=== PATIENT | male | born 1945 | race Caucasian/White ===

== ENCOUNTER 2023-03-09 14:21 | Observation (INO) ==
--- NOTE | 2023-03-09 14:29 | ED Triage Note ---
Date of Service March 09, 2023 History of Present Illness This patient was briefly evaluated while in triage. An abbreviated physical exam was performed. This patient is a 77-year-old Male who presents to the ED for evaluation of L arm numbness that has been present for a month. He had similar symptoms like this in the past resulting in stents being placed. He admits he has been putting it off. Physical Exam CONSTITUTIONAL: in no acute pain or distress, resting comfortably RESPIRATORY: in no respiratory distress Initial orders for labs and / or imaging were placed and patient was placed in the waiting area until a bed is available. Please see further documentation for the full ED course.
--- NOTE | 2023-03-09 15:04 | XRay Report ---
XR chest 1V not portable CLINICAL HISTORY: L arm paresthesias, hx cardiac disease TECHNIQUE: Single frontal radiograph of the chest was obtained. Comparison: None available at the time of this dictation. FINDINGS: No lines and tubes are seen. The cardiomediastinal silhouette is normal. Reticular interstitial opaci ties are seen. No evidence of pleural effusion or pneumothorax. IMPRESSION: No acute chest disease. ACT 112: Negative or not required by law. Electronically signed by: Ishan Rangel M.D. 03/09/2023 3:01 PM
--- NOTE | 2023-03-09 15:47 | Emergency Department Note ---
Impression & Plan Arm pain, History of coronary artery disease, Ambulatory dysfunction ED Provider Note NAME: ELIZABETH COOL AGE: 77 SEX: M : 1945 ARRIVES VIA: Walk-In INFORMANT: Patient, ED PROVIDER(S): Ramón Schultz MD CHIEF COMPLAINT: Left arm decreased sensation, cardiac evaluation MEDICAL DECISION MAKING: Patient presents for decree sensation of the left arm which is been ongoing x 1 month and was concerned about the possibility of stroke; however, the patient states that this is similar to the 2 prior times he has required stents. Patient has a nonfocal neurologic exam and no headache. This may be an anginal equivalent. Do not believe requires a CT of the head at this time. The patient is not meningitic encephalopathic and does have sensation of the left upper extremity. Patient does not have any overt weakness. Patient not a TNK candidate given chronicity of symptoms. Blood work shows a normal white count H&H and platelet count. Kidney function is unremarkable but with prerenal azotemia. Troponin not elevated. Given that the patient has had symptoms similar to his prior MIs a do believe the patient would benefit from further observation and treatment. Patient is not low risk with regard to heart score. I did speak with the on-call hospitalist service Dr. Lewis and the patient was admitted to the medicine service Prior /Outside records reviewed: None Differential diagnosis: Cardiac ischemia, aortic dissection, pulmonary embolism, pneumothorax, pneumonia, pericarditis, myocarditis, esophageal rupture, GERD, cholecystitis, pancreatitis, musculoskeletal, as well as other pathologies. Diagnostics, as interpreted by me: ECG: Sinus bradycardia with prolonged AZ, rate of 54, left axis deviation, T wave version in V2, no ST elevations. Cardiac monitoring: An order was placed for continuous cardiac monitoring. The monitor shows a rate of 57 with sinus rhythm. Patient was placed on pulse oximetry Medical decision rules: Heart score Imaging studies: See below I informally reviewed the patient's chest x-ray which does not show obvious pneumothorax. HPI: Patient presents with left arm decree sensation/numbness which has been ongoing for the last month. Patient was concerned about stroke but states that this feels similar to when he had IN x 2. Patient denies any active chest pain or necessarily exertional symptoms. No nausea vomiting or diaphoresis. No leg swelling. 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 Patient states he is compliant with his medications. No recent falls or trauma. Patient denies any cough or fever. Patient states that even though he has been having it he did not think much of it during the day as when he is busy he does not notice it but in the evening time he does seem to notice that that today he "got scared" and presented here for further evaluation and treatment. Patient was concerned about the possibility of stroke but denies any weakness of an extremity. 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 No slurred speech or facial droop. No headache or neck pain. PAST MEDICAL HISTORY: See Below PAST SURGICAL HISTORY: See Below SOCIAL HISTORY: See Below HOME MEDICATIONS: See Below ALLERGIES: See Below VITALS: See Below PHYSICAL EXAMINATION: GENERAL: NAD, non-toxic. EYE EXAM: Normal conjunctiva. PERRL, no anisocoria and EOM's grossly intact w/o pain. OROPHARYNX: Moist mucus membranes, grossly normal dentition. NECK: Supple, no nuchal rigidity, no adenopathy, non-tender. No signs of meningismus. FROM of the neck with good chin to chest and neck extension. No stridor. LUNGS: Clear to auscultation. Normal chest wall mechanics. HEART: NSR, no MRG. ABDOMEN: Abdomen soft, non-tender, no masses, no rebound or guarding. BACK: No CVA TTP. SKIN: No rashes and no bruising. UPPER EXTREMITIES: Upper extremities are grossly normal. LOWER EXTREMITIES: Grossly normal, no edema. Negative Homans' sign bilaterally. NEURO EXAM: A&O x3, cranial nerves II-XII grossly intact, normal speech, moves all 4 extremities. Sensate to the bilateral upper and lower extremities. Good [id number] and no drift. Past Med/Surg History Medical History Anxiety CAD (coronary artery disease) GERD (gastroesophageal reflux disease) Guillain Sorenson syndrome HLD (hyperlipidemia) Surgical History Coronary angioplasty status Social History Smoking Status: Former smoker Feels Safe at Home: Yes Allergies Allergies Allergy/AdvReac Type Severity Reaction Status Date / Time No Known Allergies Allergy Verified 03/09/23 17:29 Home Meds Home Medications Medication Instructions Recorded Confirmed aspirin 81 mg tablet,delayed 81 mg PO QAM 03/09/23 03/09/23 release atorvastatin 80 mg tablet 80 mg PO QAM 03/09/23 03/09/23 citalopram 20 mg tablet 20 mg PO HS 03/09/23 03/09/23 multivitamin 1 tab PO QAM 03/09/23 03/09/23 omega 4-brq-vhv-fish oil 1,000 mg 1 cap PO QAM 03/09/23 03/09/23 (120 mg-180 mg) capsule (Fish Oil) omeprazole 20 mg capsule,delayed 20 mg PO QAM 03/09/23 03/09/23 release tamsulosin 0.4 mg capsule 0.4 mg PO QAM 03/09/23 03/09/23 trazodone 50 mg tablet 50 mg PO HS 03/09/23 03/09/23 Results & Data (ED) Vital Signs Vital Signs - 24 hr 03/09/23 14:24 03/09/23 16:11 03/09/23 16:11 Temperature 36.8 C Temperature Source Temporal Artery Scan Pulse Rate 62 55 L Pulse Rate [Apical] 55 L Pulse Rate [Finger] Pulse Rhythm Regular Respiratory Rate 15 23 20 Respiratory Effort / Characteristics Non-Labored Spontaneous Non-Labored Spontaneous Respiratory Depth Normal Respiratory Pattern Regular Blood Pressure 168/77 H Blood Pressure [Right Arm] 160/92 H Blood Pressure Mean 107 Blood Pressure Mean [Right Arm] 114 Blood Pressure Position [Right Arm] Semi-fowlers Pulse Oximetry 94 96 96 Oxygen Delivery Method Room Air Room Air Room Air Sepsis Recent Fever Within 48 Hours No Sepsis New/Unexplained Change in Mental Status No Sepsis Action Taken by Nursing No Action Required 03/09/23 16:22 03/09/23 18:46 03/09/23 20:29 Temperature Temperature Source Pulse Rate 53 L Pulse Rate [Apical] 60 Pulse Rate [Finger] Pulse Rhythm Respiratory Rate 19 Respiratory Effort / Characteristics Respiratory Depth Respiratory Pattern Blood Pressure Blood Pressure [Right Arm] 190/84 H Blood Pressure Mean Blood Pressure Mean [Right Arm] 119 Blood Pressure Position [Right Arm] Pulse Oximetry 96 94 Oxygen Delivery Method Room Air Room Air Sepsis Recent Fever Within 48 Hours Sepsis New/Unexplained Change in Mental Status Sepsis Action Taken by Nursing 03/09/23 20:29 03/09/23 22:05 Temperature Temperature Source Pulse Rate Pulse Rate [Apical] 56 L Pulse Rate [Finger] 59 L Pulse Rhythm Respiratory Rate 18 16 Respiratory Effort / Characteristics Respiratory Depth Respiratory Pattern Blood Pressure Blood Pressure [Right Arm] 161/78 H 142/78 H Blood Pressure Mean Blood Pressure Mean [Right Arm] 105 99 Blood Pressure Position [Right Arm] Semi-fowlers Semi-fowlers Pulse Oximetry 94 95 Oxygen Delivery Method Room Air Room Air Sepsis Recent Fever Within 48 Hours Sepsis New/Unexplained Change in Mental Status Sepsis Action Taken by Long-Term Medications Current Medication List: was personally reviewed by me Laboratory Data Attestation: I reviewed the patient's lab results. 03/09/23 14:42 03/09/23 14:42 Lab Results 03/09/23 03/09/23 Range/Units 14:42 14:42 WBC 5.14 (4.8-10.8) K/ul RBC 4.68 L (4.70-6.10) M/uL Hgb 14.7 (14.0-18.0) g/dl Hct 42.1 (42.0-52.0) % MCV 90.0 (80.0-100.0) fL MCH 31.4 (25.0-34.0) pg MCHC 34.9 (32.0-36.0) g/dL RDW Std Deviation 43.7 (36.4-46.3) fL RDW Coeff of Roman 13.2 (11.5-14.5) % Plt Count 170 (130-400) K/uL MPV 9.8 (9.4-12.4) fL Immature Gran % (Auto) 0.4 % Neut % (Auto) 53.2 % Lymph % (Auto) 34.4 % [place] % (Auto) 8.9 % Eos % (Auto) 2.3 % Baso % (Auto) 0.8 % Neut # (Auto) 2.73 (1.40-6.50) K/uL Lymph # (Auto) 1.77 (1.2-3.4) K/uL [place] # (Auto) 0.46 (0.11-0.59) K/uL Eos # (Auto) 0.12 (0-0.50) K/uL Baso # (Auto) 0.04 (0-0.2) K/uL Immature Gran # (Auto) 0.02 (0.01-0.20) K/uL Sodium 138 (136-145) mmol/L Potassium 4.2 (3.5-5.1) mmol/L Chloride 104 (98-107) mmol/L Carbon Dioxide 28 (21-32) mmol/L Anion Gap 6 (3-11) BUN 20 (6-23) mg/dl Creatinine 0.69 (0.6-1.4) mg/dl Est Cr Clr Drug Dosing 93.4 ml/min Est GFR ( Amer) 106.1 ml/min Est GFR (Non-Af Amer) 91.6 ml/min BUN/Creatinine Ratio 29.0 H (10-20) Glucose 92 (70-99(Fasting)) mg/dl Calcium 9.3 (8.6-10.3) mg/dl Total Bilirubin 0.6 (0.2-1.0) mg/dl AST 22 (13-39) U/L ALT 27 (7-52) U/L Alkaline Phosphatase 75 (34-104) U/L Troponin I High Sens 11.6 (0-20) pg/ml Total Protein 7.6 (6.0-8.3) gm/dl Albumin 4.3 (3.4-5.0) gm/dl Globulin 3.3 (2.5-4.0) gm/dl Albumin/Globulin Ratio 1.3 (0.9-2) Administered Medications Discontinued Medications Aspirin (Aspirin Chew 324 Mg) 324 mg PO NOW STA Stop: 03/09/23 17:39 Last Admin: 03/09/23 17:43 Dose: 324 mg Documented By: AB Ioversol (Ioversol 350 Mg 125ml Prefilled Syringe) 117 ml IV ONCE ONE Stop: 03/09/23 18:22 Last Admin: 03/09/23 18:21 Dose: 117 ml Documented By: [facility] Imaging Data Radiologist's Impression: Chest X-Ray 03/09/23 14:25 XR chest 1V not portable CLINICAL HISTORY: L arm paresthesias, hx cardiac disease TECHNIQUE: Single frontal radiograph of the chest was obtained. Comparison: None available at the time of this dictation. FINDINGS: No lines and tubes are seen. The cardiomediastinal silhouette is normal. Reticular interstitial opacities are seen. No evidence of pleural effusion or pneumothorax. IMPRESSION: No acute chest disease. ACT 112: Negative or not required by law. Electronically signed by: Ishan Rangel M.D. 03/09/2023 3:01 PM Brain MRI 03/09/23 17:51 Exam(s): MRI HEAD Without Contrast EXAM: MR Head Without Intravenous Contrast CLINICAL HISTORY: Reason for exam: LUE numbness. TECHNIQUE: Magnetic resonance images of the head/brain without intravenous contrast in multiple planes. COMPARISON: CT head on same day FINDINGS: Brain: Mild chronic small vessel ischemic changes. No hemorrhage. No restricted diffusion to suggest acute infarct. Ventricles: Mild prominence of the ventricles and sulci is likely secondary to cerebral volume loss. Bones/joints: Unremarkable. Sinuses: Mild mucosal thickening in the ethmoid air cells. No acute sinusitis. Mastoid air cells: Unremarkable as visualized. No mastoid effusion. Orbits: Unremarkable as visualized. IMPRESSION: No restricted diffusion to suggest acute infarct. Electronically signed by: Mart Velez M.D. 03/09/23 20:[address] 03/09/23 17:[address] DOSE: 1213.66 mGy.cm HISTORY: L arm numbness/tingling. TECHNIQUE: Multiaxial CT images of the head were performed without the use of intravenous contrast. Automated exposure control was utilized for this study. A dose lowering technique was utilized adhering to the principles of ALARA. Comparison: None. Findings: The paranasal sinuses and mastoid air cells are clear. The calvarium and skull base are intact. The ventricles and sulci are within normal limits. There is no mass, hematoma, midline shift, or acute infarct. Impression: No acute intracranial abnormality. ACT 112: Negative or not required by law. Electronically signed by: Ramírez Oliveira M.D. 03/09/2023 6:37 PM Head CTA 03/09/23 17:52 HEAD & NECK CTA HISTORY: L arm numbness/tingling. TECHNIQUE: Multiaxial CT images of the head were performed following the intravenous administration of contrast to evaluate the major cerebral vessels. Multiaxial CT images of the neck were also performed following the intravenous administration of contrast to evaluate the major cervical vessels. 3D/MIP images were also obtained. Sagittal and coronal reformats were reviewed. A dose lowering technique was utilized adhering to the principles of ALARA. COMPARISON: Head CT 03/09/2023. FINDINGS: There is no mass, hematoma, midline shift, or acute infarct. Visualized intracranial internal carotid arteries, distal vertebral arteries, and basilar artery are widely patent. There is no significant stenosis, occlusion, or aneurysm seen within the bilateral ACAs, MCAs, or unemployment benefits claims taker. The major dural venous sinuses are patent. There is a hypoplastic left vertebral artery in comparison to the right The aortic arch and proximal great vessels are widely patent. There is no significant stenosis, occlusion, or dissection identified within the bilateral common carotid, internal carotid, or vertebral arteries. Mild paraseptal emphysema is noted. No pneumothorax. Severe degenerative disc disease at C5-C6 and C6-C7 without high-grade central canal stenosis. Focal indentation at the superior endplate of C7 favors a Schmorl's node. Mild calcified plaque within the bilateral carotid bifurcations. 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 IMPRESSION: 1. No significant stenosis, occlusion, or aneurysm within the [place]. 2. No significant stenosis, occlusion, or dissection identified within the carotid or vertebral arteries. ACT 112: Negative or not required by law. Electronically signed by: Ramírez Oliveira M.D. 03/09/2023 6:44 PM Neck CTA 03/09/23 17:52 HEAD & NECK CTA HISTORY: L arm numbness/tingling. TECHNIQUE: Multiaxial CT images of the head were performed following the intravenous administration of contrast to evaluate the major cerebral vessels. Multiaxial CT images of the neck were also performed following the intravenous administration of contrast to evaluate the major cervical vessels. 3D/MIP images were also obtained. Sagittal and coronal reformats were reviewed. A dose lowering technique was utilized adhering to the principles of ALARA. COMPARISON: Head CT 03/09/2023. FINDINGS: There is no mass, hematoma, midline shift, or acute infarct. Visualized intracranial internal carotid arteries, distal vertebral arteries, and basilar artery are widely patent. There is no significant stenosis, occlusion, or aneu rysm seen within the bilateral ACAs, MCAs, or unemployment benefits claims taker. The major dural venous sinuses are patent. There is a hypoplastic left vertebral artery in comparison to the right The aortic arch and proximal great vessels are widely patent. There is no significant stenosis, occlusion, or dissection identified within the bilateral common carotid, internal carotid, or vertebral arteries. Mild paraseptal emphysema is noted. No pneumothorax. Severe degenerative disc disease at C5-C6 and C6-C7 without high-grade central canal stenosis. Focal indentation at the superior endplate of C7 favors a Schmorl's node. Mild calcified plaque within the bilateral carotid bifurcations. 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 IMPRESSION: 1. No significant stenosis, occlusion, or aneurysm within the [place] of [place]. 2. No significant stenosis, occlusion, or dissection identified within the carotid or vertebral arteries. ACT 112: Negative or not required by law. Electronically signed by: Ramírez Oliveira M.D. 03/09/2023 6:44 PM Discharge Plan Visit Data Chief Complaint: Cardiac Assessment Stated Complaint: L ARM NUMBNESS,HEART DISEASE,CHEST TIGHTNESS ED Provider: Ramón Schultz Discharge Problem: Arm pain, History of coronary artery disease, Ambulatory dysfunction Forms Stand Alone Forms: [facility] [employer] Prescriptions Prescriptions: No Action multivitamin Tablet 1 tab PO QAM atorvastatin 80 mg tablet 80 mg PO QAM trazodone 50 mg tablet 50 mg PO HS aspirin 81 mg Tablet,Delayed Release (Dr/Ec) 81 mg PO QAM citalopram 20 mg tablet 20 mg PO HS tamsulosin 0.4 mg capsule 0.4 mg PO QAM omeprazole 20 mg capsule,delayed release(DR/EC) 20 mg PO QAM omega 4-vuy-xgm-fish oil [Fish Oil] 1,000 mg (120 mg-180 mg) Capsule 1 cap PO QAM Referrals Referrals: PCP,NO [Physician] -
[2023-03-09 15:52] LABS: Basophils # (auto) 0.04 K/uL (0-0.2); Basophils % (auto) 0.8 %; Eosinophils # (auto) 0.12 K/uL (0-0.50); Eosinophils % (auto) 2.3 %; Hematocrit (blood only) 42.1 % (42.0-52.0); Hemoglobin 14.7 g/dl (14.0-18.0); Immature Granulocytes # (auto) 0.02 K/uL (0.01-0.20); Immature Granulocytes % (auto) 0.4 %; Lymphocytes # (auto) 1.77 K/uL (1.2-3.4); Lymphocytes % (auto) 34.4 %; Mean Corpuscular Hemoglobin 31.4 pg (25.0-34.0); Mean Corpuscular Hgb Conc 34.9 g/dL (32.0-36.0); Mean Platelet Volume 9.8 fL (9.4-12.4); Monocytes # (auto) 0.46 K/uL (0.11-0.59); Monocytes % (auto) 8.9 %; Neutrophils # (auto) 2.73 K/uL (1.40-6.50); Neutrophils % (auto) 53.2 %; Platelet Count 170 K/uL (130-400); RDW Coefficient of Variation 13.2 % (11.5-14.5); RDW Standard Deviation 43.7 fL (36.4-46.3); Red Blood Count 4.68 M/uL (4.70-6.10); White Blood Count 5.14 K/ul (4.8-10.8)
[2023-03-09 16:16] LABS: Albumin Globulin Ratio 1.3 (0.9-2); Albumin Level 4.3 gm/dl (3.4-5.0); Bilirubin,Total 0.6 mg/dl (0.2-1.0); Calcium 9.3 mg/dl (8.6-10.3); Creatinine Clr Calc Pharmacy 93.4 ml/min; Est GFR (African American) 106.1 ml/min; Est GFR (Non-African American) 91.6 ml/min; Globulin 3.3 gm/dl (2.5-4.0); Potassium 4.2 mmol/L (3.5-5.1); Total Protein 7.6 gm/dl (6.0-8.3)
[2023-03-09 16:18] LABS: Troponin I High Sensitivity 11.6 pg/ml (0-20)
--- NOTE | 2023-03-09 17:07 | Electrocardiogram Report ---
Test Reason : Blood Pressure : / mmHG Vent. Rate : 054 BPM Atrial Rate : 054 BPM P-R Int : 208 ms QRS Dur : 118 ms QT Int : 416 ms P-R-T Axes : 085 -65 034 degrees QTc Int : 394 ms Sinus bradycardia Left axis deviation Right bundle branch block Left ventricular hypertrophy with QRS widening Anterolateral infarct , age undetermined Abnormal ECG No previous ECGs available Confirmed by Sid Loaiza ([id number]) on 03/09/2023 5:07:22 PM Referred By: Confirmed By:Juventino Loaiza
[2023-03-09] MEDS ORDERED: ASPIRIN CHEW 324 MG PO STA (17:38)
[2023-03-09] MEDS ORDERED: NITROGLYCERIN SL 0.4 MG/TAB TAB SL STA (17:38)
--- NOTE | 2023-03-09 17:49 | History & Physical Report ---
Date of Service March 09, 2023 Assessment & Plan (1) Arm pain: Plan: Ean is a 77-year-old male with a past medical history of hyperlipidemia, anxiety/depression, GERD who presents with 1 month of decree sensation in the left arm and is concerned about stroke, has a history of PCI which presented with atypical chest pain and left arm weakness. Left arm intermittent numbness and pain Patient reports he had identical symptoms with the prior 2 MIs, these MIs which required 1 stent each time did not have any other symptoms including chest pain, chest pressure, shortness of breath, diaphoresis Patient is very concerned about potential stroke given his history of RI, and family history of stroke. CThead, CTAhead/neck pending for CVA rule out. Low suspicion as has no other focal neurologic deficits and exam at bedside is History is concerning given his past RI presenting with identical symptoms although he does not show evidence on EKG of ACS at this time and high sensitive troponin is normal at 11 point High-sensitivity troponin is trend EKG: Sinus bradycardia, LVH, QTc 394, no territorial ST segment changes CXR: No acute findings Patient would like to switch over to [facility] for further care. Given prior cardiac history? Stress test. Cardiology consulted. He has no symptoms at time of admission, did receive aspirin Reports a history of 2 RYAN, records pending from Dr. Shin. Formally on DAPT, was switched several years ago to aspirin monotherapy with which she is can compliant. 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 CT and MRI above are pending as noted PT/OT Hyperlipidemia Continue statin GERD Continue omeprazole BPH Continue Flomax Anxiety/depression Trazodone nightly as needed for sleep DVT prophylaxis: Lovenox Disposition: Medical telemetry for atypical chest pain eval Diet: Heart healthy CODE STATUS: Full code (2) CAD (coronary artery disease): (3) Guillain Sorenson syndrome: (4) HLD (hyperlipidemia): (5) GERD (gastroesophageal reflux disease): (6) Anxiety: History of Present Illness Primary Care Provider: GABRIELLE Mckoy is seen in the ER. He reports he in concerned about a possible heart attack. Has a history of RI x2 with the same feeling. Intermittent in the last month. No other neuro symptoms. No weakness. No syncope/presyncope. No lightheadedness. No numbness/tingling ''nagging sensation, odd to describe." He reports his symptoms seem to get worse and are more noticabl eat night. Symptoms are not brought on by exertion. No shortness of breath, no difficulty breathing He reports he is very active and has had no chest pain or chest pressure No diaphoresis No fevers, chills sweats L arm shoulder into the forearm has 'an odd numb/tingling like feeling' which occurs intermittently. Is not present currently. 0/10 pain. He reports he is very concerned about strokes as well. Mother had a stroke. Father had heart disease. 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 Ignored similar feeling sin his shoulder and then had a severe episode of just shoulder pain (no chest pain, or back pain, no SoB/diaphoresis, just arm pain) and was found to have a RI. Had stends placed and follows w/ Dr. Shin. 1x stend each time. Follows with Dr. Shin but is transitioning to [facility], has not seen yet Denies HTN, actually BP is normally low He is pending a dobutamine stress test, cannot go on a treadmill due to hx of Guillanmoustapha [place] Now on aspirin monotherapy. DAPT was reduced to aspirin after ~1 year. FOrmerly on Metoprolol, this was stopped due to borderline hypotension and is also not on ANETTE/ARB. Denies history of heart failure. No history of strokes No history of DM2 Medical History: Reviewed Medications: Reviewed Surgical History: Reviewed Family history: Reviewed Allergies: Reviewed Social History: No tobacco use. No etoh use. Code Status: Full Code Allergies Allergy/AdvReac Type Severity Reaction Status Date / Time No Known Allergies Allergy Verified 03/09/23 17:29 Home Medications Medication Instructions Recorded Confirmed Type aspirin 81 mg tablet,delayed 81 mg PO QAM 03/09/23 03/09/23 History release atorvastatin 80 mg tablet 80 mg PO QAM 03/09/23 03/09/23 History citalopram 20 mg tablet 20 mg PO HS 03/09/23 03/09/23 History multivitamin 1 tab PO QAM 03/09/23 03/09/23 History omega 0-xox-mag-fish oil 1,000 mg 1 cap PO QAM 03/09/23 03/09/23 History (120 mg-180 mg) capsule (Fish Oil) omeprazole 20 mg capsule,delayed 20 mg PO QAM 03/09/23 03/09/23 History release tamsulosin 0.4 mg capsule 0.4 mg PO QAM 03/09/23 03/09/23 History trazodone 50 mg tablet 50 mg PO HS 03/09/23 03/09/23 History Past Med/Surg History Medical History Anxiety GERD (gastroesophageal reflux disease) Social History Smoking Status: Former smoker Feels Safe at Home: Yes Review of Systems Review of Systems: All systems reviewed & are unremarkable except as noted in Subjective Physical Exam Physical Exam: General: A&Ox3. NAD. Cooperative. HEENT: Atraumatic, normocephalic. Pulm: CTAB A&P. -wheezes, -rales, -rhonchi. Symmetrical chest rise. No increased work of breathing. No respiratory distress. Cardiac: RRR, -mrg. Radial pulses intact and symmetrical. Abdominal: Nontender, nondistended, soft. BS present. CRANIAL NERVES: II: Pupils equal and reactive, no relative afferent pupillary defect, no VF cuts III, IV, : EOM intact, no gaze preference or deviation, no nystagmus. V: normal sensation in V1, V2, and V3 segments bilaterally VII: no asymmetry, no nasolabial fold flattening VIII: normal hearing to speech IX, X: normal palatal elevation, no uvular deviation XI: 5/5 head turn and 5/5 shoulder shrug bilaterally XII: midline tongue protrusion MOTOR: RUE: 5/5 printing worker supervisor strength, finger flexion/extension, interosseus LUE: 5/5 printing worker supervisor strength, finger flexion/extension, interosseus RLE: 5/5 to hip flexion, knee flexion/extension, ankle dorsiflexion/plantarflexion LLE: 5/5 to hip flexion, knee flexion/extension, ankle dorsiflexion/plantarflexion SENSORY: Normal to touch in upper and lower extremities without deficit or asymmetry COORD: Normal finger to nose and heel to gupta, no tremor, no dysmetria Results & Data Results & Data Vital Signs (Past 12 Hours) Vital Signs Temp Pulse Pulse Resp BP BP Pulse Ox 03/09/23 16:22 53 L 03/09/23 16:11 55 L 20 96 03/09/23 16:11 55 L 23 160/92 H 96 03/09/23 14:24 36.8 C 62 15 168/77 H 94 O2 Del Method 03/09/23 16:22 03/09/23 16:11 Room Air 03/09/23 16:11 Room Air 03/09/23 14:24 Room Air PG Care Time/CCT Total # of Minutes Spent Total Time Spent with Patient: Total time spent is greater than 50% in coordination of care (as documented) at patient's floor/unit and/or counseling patient: Coding Level of Care Code 29899 INT INP/OBS CARE 3/75MIN Diagnoses Arm pain M79.603 CAD (coronary artery disease) I25.10 Guillain Sorenson syndrome G61.0 HLD (hyperlipidemia) E78.5 GERD (gastroesophageal reflux disease) K21.9 Anxiety F41.9
[2023-03-09] MEDS ORDERED: IOVERSOL 350 MG 125mL Prefilled Syringe IV ONE (18:21)
--- NOTE | 2023-03-09 18:39 | CT Scan Report ---
HEAD CT NONCONTRAST CT DOSE: 1213.66 mGy.cm HISTORY: L arm numbness/tingling. TECHNIQUE: Multiaxial CT images of the head were performed without the use of intravenous contrast. A utomated exposure control was utilized for this study. A dose lowering technique was utilized adheri ng to the principles of ALARA. Comparison: None. Findings: The paranasal sinuses and mastoid air cells are clear. The calvarium and skull base are int act. The ventricles and sulci are within normal limits. There is no mass, hematoma, midline shift, or acute infarct. Impression: No acute intracranial abnormality. ACT 112: Negative or not required by law. Electronically signed by: Ramírez Oliveira M.D. 03/09/2023 6:37 PM
--- NOTE | 2023-03-09 18:45 | CT Scan Report ---
HEAD & NECK CTA HISTORY: L arm numbness/tingling. TECHNIQUE: Multiaxial CT images of the head were performed following the intravenous administration o f contrast to evaluate the major cerebral vessels. Multiaxial CT images of the neck were also perform ed following the intravenous administration of contrast to evaluate the major cervical vessels. 3D/AZ P images were also obtained. Sagittal and coronal reformats were reviewed. A dose lowering technique was utilized adhering to the principles of ALARA. COMPARISON: Head CT 03/09/2023. FINDINGS: There is no mass, hematoma, midline shift, or acute infarct. Visualized intracranial internal carotid arteries, distal vertebral arteries, and basilar artery are widely patent. There is no significant s tenosis, occlusion, or aneurysm seen within the bilateral ACAs, MCAs, or tool setter. The major dural venous sinuses are patent. There is a hypoplastic left vertebral artery in comparison to the right The aortic arch and proximal great vessels are widely patent. There is no significant stenosis, occ lusion, or dissection identified within the bilateral common carotid, internal carotid, or vertebral arteries. Mild paraseptal emphysema is noted. No pneumothorax. Severe degenerative disc disease at C5 -C6 and C6-C7 without high-grade central canal stenosis. Focal indentation at the superior endplate o f C7 favors a Schmorl's node. Mild calcified plaque within the bilateral carotid bifurcations. 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 IMPRESSION: 1. No significant stenosis, occlusion, or aneurysm within the [place] of [place]. 2. No significant stenosis, occlusion, or dissection identified within the carotid or vertebral arter ies. ACT 112: Negative or not required by law. Electronically signed by: Ramírez Oliveira M.D. 03/09/2023 6:44 PM
--- NOTE | 2023-03-09 18:45 | CT Scan Report ---
HEAD & NECK CTA HISTORY: L arm numbness/tingling. TECHNIQUE: Multiaxial CT images of the head were performed following the intravenous administration o f contrast to evaluate the major cerebral vessels. Multiaxial CT images of the neck were also perform ed following the intravenous administration of contrast to evaluate the major cervical vessels. 3D/ND P images were also obtained. Sagittal and coronal reformats were reviewed. A dose lowering technique was utilized adhering to the principles of ALARA. COMPARISON: Head CT 03/09/2023. FINDINGS: There is no mass, hematoma, midline shift, or acute infarct. Visualized intracranial internal carotid arteries, distal vertebral arteries, and basilar artery are widely patent. There is no significant s tenosis, occlusion, or aneurysm seen within the bilateral ACAs, MCAs, or meat processing center manager. The major dural venous sinuses are patent. There is a hypoplastic left vertebral artery in comparison to the right The aortic arch and proximal great vessels are widely patent. There is no significant stenosis, occ lusion, or dissection identified within the bilateral common carotid, internal carotid, or vertebral arteries. Mild paraseptal emphysema is noted. No pneumothorax. Severe degenerative disc disease at C5 -C6 and C6-C7 without high-grade central canal stenosis. Focal indentation at the superior endplate o f C7 favors a Schmorl's node. Mild calcified plaque within the bilateral carotid bifurcations. 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 IMPRESSION: 1. No significant stenosis, occlusion, or aneurysm within the [place] of [place]. 2. No significant stenosis, occlusion, or dissection identified within the carotid or vertebral arter ies. ACT 112: Negative or not required by law. Electronically signed by: Ramírez Oliveira M.D. 03/09/2023 6:44 PM
--- NOTE | 2023-03-09 20:22 | Magnetic Resonance Report ---
Exam(s): MRI HEAD Without Contrast EXAM: MR Head Without Intravenous Contrast CLINICAL HISTORY: Reason for exam: LUE numbness. TECHNIQUE: Magnetic resonance images of the head/brain without intravenous contrast in multiple planes. COMPARISON: CT head on same day FINDINGS: Brain: Mild chronic small vessel ischemic changes. No hemorrhage. No restricted diffusion to suggest acute infarct. Ventricles: Mild prominence of the ventricles and sulci is likely secondary to cerebral volume loss. Bones/joints: Unremarkable. Sinuses: Mild mucosal thickening in the ethmoid air cells. No acute sinusitis. Mastoid air cells: Unremarkable as visualized. No mastoid effusion. Orbits: Unremarkable as visualized. IMPRESSION: No restricted diffusion to suggest acute infarct. Electronically signed by: Mart Velez M.D. 03/09/23 20:20 PM
[2023-03-10] MEDS ORDERED: traZODone HCL 50 MG TAB PO SCH (01:13)
[2023-03-10] MEDS ORDERED: NITROGLYCERIN SL 0.4 MG/TAB TAB SL PRN (01:13)
[2023-03-10] MEDS ORDERED: CITALOPRAM 20 MG TAB PO SCH (01:13)
[2023-03-10 07:06] LABS: Basophils # (auto) 0.04 K/uL (0-0.2); Basophils % (auto) 0.7 %; Eosinophils # (auto) 0.14 K/uL (0-0.50); Eosinophils % (auto) 2.4 %; Hematocrit (blood only) 41.4 % (42.0-52.0); Hemoglobin 14.3 g/dl (14.0-18.0); Immature Granulocytes # (auto) 0.01 K/uL (0.01-0.20); Immature Granulocytes % (auto) 0.2 %; Lymphocytes # (auto) 2.41 K/uL (1.2-3.4); Lymphocytes % (auto) 40.5 %; Mean Corpuscular Hemoglobin 31.2 pg (25.0-34.0); Mean Corpuscular Hgb Conc 34.5 g/dL (32.0-36.0); Mean Corpuscular Volume 90.2 fL (80.0-100.0); Mean Platelet Volume 9.6 fL (9.4-12.4); Monocytes # (auto) 0.59 K/uL (0.11-0.59); Monocytes % (auto) 9.9 %; Neutrophils # (auto) 2.76 K/uL (1.40-6.50); Neutrophils % (auto) 46.3 %; Platelet Count 149 K/uL (130-400); RDW Coefficient of Variation 13.3 % (11.5-14.5); RDW Standard Deviation 43.8 fL (36.4-46.3); Red Blood Count 4.59 M/uL (4.70-6.10); White Blood Count 5.95 K/ul (4.8-10.8)
[2023-03-10 07:28] LABS: Calcium 9.1 mg/dl (8.6-10.3); Creatinine Clr Calc Pharmacy 86.6 ml/min; Est GFR (African American) 103.1 ml/min; Potassium 3.9 mmol/L (3.5-5.1)
[2023-03-10] MEDS ORDERED: ASPIRIN 81 MG ECTAB PO SCH (09:00)
[2023-03-10] MEDS ORDERED: PANTOprazole 40 MG TAB PO SCH (09:00)
[2023-03-10] MEDS ORDERED: ATORVASTATIN 40 MG TAB PO SCH (09:00)
[2023-03-10] MEDS ORDERED: TAMSULOSIN HCL 0.4 MG CAP PO SCH (09:00)
--- NOTE | 2023-03-10 09:38 | Cardiology Consultation ---
Date of Consultation March 10, 2023 Assessment & Plan (1) First degree atrioventricular block: (2) Arm pain: (3) History of coronary artery disease: (4) Bradycardia: (5) Hypertension: Plan 1. Arm pain: I do not think this is representative government relations of coronary insufficiency, angina or acute coronary syndrome. The symptoms are fairly longstanding in nature. There extended in duration. They are fairly atypical for cardiac discomfort. There is some reproducible component on palpation of the left shoulder. Cardiac biomarkers are normal. Likely musculoskeletal. I asked him to refrain from resistance training involving the shoulder and possibly use hot compresses for symptomatic relief. 2. Coronary disease: He reports remote interventions to 2 arteries. He reports by annual stress testing. He has not been known to have recurrent disease or symptoms. It seems reasonable to continue secondary prevention with aspirin and atorvastatin. Possibly history of old MRI. Not on beta-rosangela likely due to conduction disease and bradycardia. 3. Hypertension: He is not on medication for hypertension. He states that normally his blood pressure is well controlled at home. However, here in the hospital it has been elevated. I think any therapy for hypertension could be deferred to the outpatient setting. We will need to be cautious with medications and choose an agent does not exacerbate Guillain-Panama. 4. 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 First degree AV block, right bundle-branch block and left anterior fascicular block. No current symptoms to suggest high-degree AV block. No dizziness or syncope. History of Present Illness Reason for Consultation: Left arm pain Requesting Physician: Debbie Attending Physician: Chris Aaron MD History of Present Illness The patient is a 77-year-old gentleman with a history of coronary disease having undergone percutaneous intervention on 2 occasions. Patient states that over the past several weeks he has been noticing some mild discomfort in the left forearm. This tends to be most noticeable at nighttime while he was relaxing and watching TV. He obtained some relief by resting his weight on the right side versus the left. However, this symptom is mild and generally lasts until he goes to sleep at nighttime. It is not something he notices during the day. There does not appear to be any precipitating activity. There are no associated symptoms. He does report doing resistance training involving shoulder exercises. Does report some point tenderness in the left shoulder as well. In the remote past he had reported similar symptoms and was told that this could be a sign of heart disease. His current heel seat pounder has recommended that he go to the emergency room if he feels similar symptoms. He is an otherwise active individual. 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 However, he states he is always on the go. He does not appear to do dedicated cardiovascular exercise, but did not report limitations associated with routine activity. No exertional dyspnea. No symptoms of chest pain. No exertional arm discomfort. No dizziness or lightheadedness. No sense of palpitation. No lower extremity edema. This morning he says he feels quite well. He believes that his arm discomfort could be radiation from a minor shoulder injury. Allergies Allergy/AdvReac Type Severity Reaction Status Date / Time No Known Allergies Allergy Verified 03/09/23 17:29 Home Medications Medication Instructions Recorded Confirmed Type aspirin 81 mg tablet,delayed 81 mg PO [facility] 03/09/23 03/09/23 History release atorvastatin 80 mg tablet 80 mg PO [facility] 03/09/23 03/09/23 History citalopram 20 mg tablet 20 mg PO 03/09/23 03/09/23 History multivitamin 1 tab PO [facility] 03/09/23 03/09/23 History omega 9-bpl-dpj-fish oil 1,000 mg 1 cap PO [facility] 03/09/23 03/09/23 History (120 mg-180 mg) capsule (Fish Oil) omeprazole 20 mg capsule,delayed 20 mg PO [facility] 03/09/23 03/09/23 History release tamsulosin 0.4 mg capsule 0.4 mg PO [facility] 03/09/23 03/09/23 History trazodone 50 mg tablet 50 mg PO 03/09/23 03/09/23 History Patient History Medical History Anxiety CAD (coronary artery disease) GERD (gastroesophageal reflux disease) Guillain Sorenson syndrome HLD (hyperlipidemia) Surgical History Coronary angioplasty status Social History Smoking Status: Never smoker Hx Alcohol Use: No Hx Substance Use: No Preferred Language: Chinese Communication Ability: Effective Community Health Program Coordinator Required: No Beliefs That Will Affect Care: Samaritan Samaritan Beliefs: Pashto Voodoo P ritaylor Current Living Situation: Alone Feels Safe at Home: Yes Safety Concerns: Feels Safe At This Time Review of Systems Review of Systems: Per HPI. No recent constitutional symptoms such as fevers or chills. Physical Exam Physical Exam: The patient is alert and oriented. Mood and affect appeared normal. He answered all questions appropriately. HEENT: Pupils are equal and reactive to light and accommodation. Extraocular movements are intact. The sclerae are anicteric. Neuro: Cranial nerves intact Lungs: Clear to auscultation bilaterally. He has good air movement without use of accessory muscles. No rales wheezes or rhonchi. Cardiac: Heart demonstrates a regular rate and rhythm. Normal S1 and S2. No murmurs on examination. Pulses: The patient has palpable radial pulses bilaterally that are equal in intensity Extremities: There was no evidence of hypoperfusion. There is no cyanosis or clubbing. There mild edema. Skin: I did not appreciate any rashes on examination today. Results & Data Vital Signs (Past 12 Hours) Vital Signs Temp Pulse Pulse Pulse Resp BP BP 03/10/23 07:20 36.6 C 54 L 16 142/78 H 03/10/23 02:20 36.5 C 55 L 18 156/70 H 03/10/23 01:46 49 L 03/10/23 01:18 36.5 C 53 L 16 160/79 H 03/10/23 00:00 36.8 C 56 L 59 L 16 142/78 H 03/09/23 22:05 59 L 16 142/78 H Pulse Ox O2 Del Method 03/10/23 07:20 97 Room Air 03/10/23 02:20 95 Room Air 03/10/23 01:46 03/10/23 01:18 96 Room Air 03/10/23 00:00 95 Room Air 03/09/23 22:05 95 Room Air Laboratory Results Abnormal Lab Results 03/09/23 03/09/23 03/10/23 14:42 14:42 01:46 WBC 5.14 RBC 4.68 L Hgb 14.7 Hct 42.1 MCV 90.0 MCH 31.4 MCHC 34.9 RDW Std Deviation 43.7 RDW Coeff of Roman 13.2 Plt Count 170 MPV 9.8 Immature Gran % (Auto) 0.4 Neut % (Auto) 53.2 Lymph % (Auto) 34.4 [place] % (Auto) 8.9 Eos % (Auto) 2.3 Baso % (Auto) 0.8 Neut # (Auto) 2.73 Lymph # (Auto) 1.77 [place] # (Auto) 0.46 Eos # (Auto) 0.12 Baso # (Auto) 0.04 Immature Gran # (Auto) 0.02 Sodium 138 Potassium 4.2 Chloride 104 Carbon Dioxide 28 Anion Gap 6 BUN 20 Creatinine 0.69 Est Cr Clr Drug Dosing 93.4 Est GFR ( Amer) 106.1 Est GFR (Non-Af Amer) 91.6 BUN/Creatinine Ratio 29.0 H Glucose 92 Calcium 9.3 Total Bilirubin 0.6 AST 22 ALT 27 Alkaline Phosphatase 75 Troponin I High Sens 11.6 17.0 D Total Protein 7.6 Albumin 4.3 Globulin 3.3 Albumin/Globulin Ratio 1.3 03/10/23 03/10/23 06:09 06:09 WBC 5.95 RBC 4.59 L Hgb 14.3 Hct 41.4 L MCV 90.2 MCH 31.2 MCHC 34.5 RDW Std Deviation 43.8 RDW Coeff of Roman 13.3 Plt Count 149 MPV 9.6 Immature Gran % (Auto) 0.2 Neut % (Auto) 46.3 Lymph % (Auto) 40.5 [place] % (Auto) 9.9 Eos % (Auto) 2.4 Baso % (Auto) 0.7 Neut # (Auto) 2.76 Lymph # (Auto) 2.41 [place] # (Auto) 0.59 Eos # (Auto) 0.14 Baso # (Auto) 0.04 Immature Gran # (Auto) 0.01 Sodium 137 Potassium 3.9 Chloride 102 Carbon Dioxide 30 Anion Gap 5 BUN 17 Creatinine 0.74 Est Cr Clr Drug Dosing 86.6 Est GFR ( Amer) 103.1 Est GFR (Non-Af Amer) 89.0 BUN/Creatinine Ratio 23.0 H Glucose 88 Calcium 9.1 Total Bilirubin AST ALT Alkaline Phosphatase Troponin I High Sens Total Protein Albumin Globulin Albumin/Globulin Ratio Diagnostic Findings Head CT, head and neck CTA and head MRI were all unremarkable. ECG Additional Comments: EKG demonstrated sinus bradycardia with 1st degree AV block. Right bundle branch block and left anterior fascicular block. PG Care Time/CCT Total # of Minutes Spent Total Time Spent with Patient: Total time spent is greater than 50% in coordination of care (as documented) at patient's floor/unit and/or counseling patient: Coding Diagnoses First degree atrioventricular block I44.0 Arm pain M79.603 History of coronary artery disease Z86.79 Bradycardia R00.1 Hypertension I10
--- NOTE | 2023-03-10 11:47 | Discharge Summary ---
Date of Service March 10, 2023 Admission HPI Per Admitting Provider Ean is seen in the ER. He reports he in concerned about a possible heart attack. Has a history of OR x2 with the same feeling. Intermittent in the last month. No other neuro symptoms. No weakness. No syncope/presyncope. No lightheadedness. No numbness/tingling ''nagging sensation, odd to describe." He reports his symptoms seem to get worse and are more noticabl eat night. Symptoms are not brought on by exertion. No shortness of breath, no difficulty breathing He reports he is very active and has had no chest pain or chest pressure No diaphoresis No fevers, chills sweats L arm shoulder into the forearm has 'an odd numb/tingling like feeling' which occurs intermittently. Is not present currently. 0/10 pain. He reports he is very concerned about strokes as well. Mother had a stroke. Father had heart disease. 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 Ignored similar feeling sin his shoulder and then had a severe episode of just shoulder pain (no chest pain, or back pain, no SoB/diaphoresis, just arm pain) and was found to have a OR. Had stends placed and follows w/ Dr. Shin. 1x stend each time. Follows with Dr. Shin but is transitioning to [facility] Cardiology, has not seen yet Denies HTN, actually BP is normally low He is pending a dobutamine stress test, cannot go on a treadmill due to hx of Gu[place] Now on aspirin monotherapy. DAPT was reduced to aspirin after ~1 year. FOrmerly on Metoprolol, this was stopped due to borderline hypotension and is also not on ANETTE/ARB. Denies history of heart failure. No history of strokes No history of DM2 Medical History: Reviewed Medications: Reviewed Surgical History: Reviewed Family history: Reviewed Allergies: Reviewed Social History: No tobacco use. No etoh use. Code Status: Full Code Principal Diagnosis Noncardiac left arm pain Discharge Exam General-alert and oriented x3, no fevers, no chills HEENT-head atraumatic and normocephalic, pupils equal and reactive to light, extraocular muscles intact Neck-no lymphadenopathy or thyromegaly, trachea midline Chest-clear to auscultation percussion. No rales wheezing or rhonchi Cardiac-regular rate and rhythm, normal S1 and S2 Abdomen-normal bowel sounds, nontender, no hepatosplenomegaly Extremities-no cyanosis, clubbing, or edema Neuro-cranial nerves II through XII intact, motor and sensory function within normal limits, strength symmetrical , no focal deficits Psych-normal affect, normal mood Discharge Data Allergies Allergy/AdvReac Type Severity Reaction Status Date / Time No Known Allergies Allergy Verified 03/09/23 17:29 Consultations 03/09/23 17:38 ED Decision to Admit Stat 03/10/23 01:13 Consult Cardiology Routine Ordered Studies 03/09/23 17:51 MR brain wo con Routine 03/09/23 17:52 CT angio head w con Stat CT angio neck with con Stat CT head/brain wo con Stat Hospital Course (1) Arm pain: Resolved. No evidence of acute coronary syndrome. The patient has been seen by cardiology. Troponin series is negative. No dynamic EKG changes. He will be discharged home with a prescription for sublingual nitroglycerin to use as needed. Proper use explanation was given to the patient. (2) CAD (coronary artery disease): Stable. 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 Continue statin therapy (5) GERD (gastroesophageal reflux disease): Stable. Continue PPI therapy (6) Anxiety: Stable. Continue current medication as needed Plan Home today, March 10 Total Time Total Time Spent Total Time Spent (In Minutes): 45 minutes Discharge Plan Discharge Items Patient Disposition: Home - Self-Care Reason For Visit: ARM NUMBNESS, HX ATYPICAL OR Discharge Diagnosis: Noncardiac left arm paresthesia and discomfort Activity: Resume your previous activity Non-emergency contact: Primary Care Provider Call non-emergency contact if: you have any medication questions and your symptoms worsen Follow-up/Referrals: Bindu Valadez PA-C [Primary Care Provider] - Diet: Regular and Heart Healthy Addtl Attending Provider Instructions: Use nitroglycerin tablets under the tongue as directed as needed for any discomfort in the chest or arms Pending Studies at Discharge: No Stand-Alone Forms: My [employer], Smoking Cessation Medications and DC Order Prescriptions: New nitroglycerin [Nitrostat] 0.4 mg Tablet, Sublingual 0.4 mg sublingual Q5M PRN (Reason: chest pain) Qty: 25 0RF Continued multivitamin Tablet 1 tab PO QAM atorvastatin 80 mg tablet 80 mg PO QAM trazodone 50 mg tablet 50 mg PO HS aspirin 81 mg Tablet,Delayed Release (Dr/Ec) 81 mg PO QAM citalopram 20 mg tablet 20 mg PO HS tamsulosin 0.4 mg capsule 0.4 mg PO QAM omeprazole 20 mg capsule,delayed release(DR/EC) 20 mg PO QAM omega 5-vud-wvy-fish oil [Fish Oil] 1,000 mg (120 mg-180 mg) Capsule 1 cap PO QAM Discharge Orders: Discharge Order (Routine); Ordered 03/10/23 Ordered By: Chris Aaron Admission Data Admit Date/Time: 03/09/23 19:54 Attending Provider: Chris Aaron Admit Provider: Dashawn Lewis Primary Care Provider: Bindu Valadez Other Providers: Dashawn Lewis ; Sid Loaiza Coding Level of Care Code 64924 INP/OBS DISCH >30 MIN Diagnoses Arm pain M79.603 CAD (coronary artery disease) I25.10 Guillain Sorenson syndrome G61.0 HLD (hyperlipidemia) E78.5 GERD (gastroesophageal reflux disease) K21.9 Anxiety F41.9
== END 2023-03-10 14:10 | disposition home or self-care (01) ==
LOC: ED 14:21 → 2N 14:21 → SUATTDRO 19:54 → 2N 03-10 01:33